=== PATIENT | female | born 1990 | race Caucasian/White ===

== ENCOUNTER 2018-03-26 13:54 | Inpatient (IN) | payer OTHER ==
[~2018-03-26] VITALS: Ht 167.6 cm; Wt 131.0 kg
--- NOTE | 2018-03-26 14:12 | NUR ---
Assumed care of patient. Patient states she locked herself outof her house and was trying to break in through a window and slipped. C/O left ankle pain. Deformity, edema, and bruising noted. Will continue to monitor.
[2018-03-26] MEDS ORDERED: PROPOFOL 10 MG/ML, 20ML ONE ×2 (15:18→15:49)
--- NOTE | 2018-03-26 15:19 | NUR ---
Patient ready for procedural sedation.
[2018-03-26] MEDS ORDERED: PREN1TAB62 PO (15:35)
--- NOTE | 2018-03-26 15:50 | NUR ---
TIME OUT PERFORMED AT 1542, PATIENT MEDICATED WITH PROPOFOL BY DR. FALLON. L ANKLE REDUCED, PATIENT TOLERATED WELL.
--- NOTE | 2018-03-26 15:57 | NUR ---
SPLINT COMPLETED, PATIENT TOLERATED WELL. PATIENT IS WAKING UP AND ALERT/ORIENTATED AT THIS TIME.
--- NOTE | 2018-03-26 16:59 | NUR ---
Resting in [facility]. No needs.
[2018-03-26] MEDS ORDERED: ONDANSETRON 2MG/ML, 2ML IVPush PRN (17:00)
[2018-03-26] MEDS ORDERED: ACETAMINOPHEN 325 MG TABLET PO PRN (17:00)
[2018-03-26] MEDS ORDERED: PROPOFOL 10 MG/ML, 20ML IVPush ONE (17:00)
[2018-03-26] MEDS ORDERED: LACTATED RINGERS 1,000 ML IV SCH (17:00)
[2018-03-26 17:10] LABS: ALANINE AMINOTRANSFERASE 43 U/L (12-78); ALBUMIN 3.6 g/dL (3.4-5.0); ANION GAP 5 mmol/L (5-15); CALCIUM 8.9 mg/dL (8.5-10.1); CHLORIDE 111 mmol/L (98-107); CREATININE 0.59 mg/dL (0.55-1.02)
[2018-03-26 17:13] LABS: ALKALINE PHOSPHATASE 96 U/L (45-117); BILIRUBIN,TOTAL 0.4 mg/dL (0.2-1.0); TOTAL PROTEIN 7.5 g/dL (6.4-8.2)
[2018-03-26 17:46] LABS: BASOPHILS # (AUTO) 0.03 x10^3/uL (0-0.1); BASOPHILS % (AUTO) 0 % (0-1); EOSINOPHILS % (AUTO) 0 % (1-7); LYMPHOCYTES # (AUTO) 1.59 x10^3/uL (1-3.4); LYMPHOCYTES % (AUTO) 11 % (22-44); MD NO; MEAN CORPUSCULAR HEMOGLOBIN 27.7 pg (27.0-34.8); MEAN CORPUSCULAR HGB CONC 34.2 g/dL (32.4-35.8); MEAN CORPUSCULAR VOLUME 81.2 fL (80-100); MEAN PLATELET VOLUME 8.6 fL (7.4-10.4); MONOCYTES % (AUTO) 4 % (2-9); NEUTROPHILS # (AUTO) 12.32 x10^3/uL (1.8-6.8); NEUTROPHILS % (AUTO) 85 % (42-75); PLATELET COUNT 344 x10^3/uL (130-400); RED BLOOD COUNT 4.81 x10^6/uL (3.82-5.3); RED CELL DISTRIBUTION WIDTH 14.2 % (9.6-15.2)
--- NOTE | 2018-03-26 18:01 | NUR ---
Report called to TONY Simpson.
[2018-03-26] MEDS: D5%-0.45% NACL 1,000 ML IV SCH (20:32)
[2018-03-26] MEDS: ACETAMINOPHEN 500 MG TABLET PO PRN (20:32)
[2018-03-27] MEDS: ACETAMINOPHEN 500 MG TABLET PO PRN ×3 (01:56→08:39)
[2018-03-27 04:15] VITALS: BP 148/92
[2018-03-27 08:00] VITALS: BP 142/96
[2018-03-27] MEDS: PRENATAL VIT/IRON/FA 1 EACH TABLET PO SCH (09:00)
[2018-03-27] MEDS: D5%-0.45% NACL 1,000 ML IV SCH ×2 (09:04→20:36)
[2018-03-27] MEDS ORDERED: ROPIvacaine/PF 0.5%, 20 ML ONE ×2 (15:03→16:59)
[2018-03-27] MEDS ORDERED: BUPIVACAINE/PF 0.25% ONE (15:03)
[2018-03-27] MEDS ORDERED: CEFAZOLIN 1,000 MG ONE (15:19)
[2018-03-27] MEDS ORDERED: FENTANYL PF 250 MCG/5ML ONE (15:19)
[2018-03-27] MEDS ORDERED: NEOSPORIN OINT, 15GM ONE (15:56)
[2018-03-27] MEDS ORDERED: ONDANSETRON 2MG/ML, 2ML IV PRN ×2 (16:00→19:00)
[2018-03-27] MEDS ORDERED: LABETALOL 5MG/ML, 20ML IV PRN (16:00)
[2018-03-27] MEDS ORDERED: OXYcodone 5 MG/5 ML ORAL.SOL UDC PO PRN (16:00)
[2018-03-27] MEDS ORDERED: HYDROmorphone 2 MG/ML, 1ML IVPush PRN (16:00)
[2018-03-27] MEDS ORDERED: ALBUTEROL SULFATE 2.5 MG/3 ML NPPB PRN (16:00)
[2018-03-27] MEDS ORDERED: MORPHINE SULFATE 4 MG/ML, 1ML IVPush PRN (16:00)
[2018-03-27] MEDS ORDERED: ONDANSETRON ODT 8 MG PO PRN (16:00)
[2018-03-27] MEDS ORDERED: EPHEDRINE 50 MG/ML, 1ML IVPush PRN (16:00)
[2018-03-27] MEDS ORDERED: ACETAMINOPHEN 325 MG TABLET PO PRN ×2 (16:00→19:00)
[2018-03-27] MEDS ORDERED: SUCCINYLCHOLINE 20 MG/ML, 10ML ONE (16:32)
[2018-03-27] MEDS ORDERED: PROPOFOL 10 MG/ML, 20ML ONE (16:32)
[2018-03-27] MEDS ORDERED: ROCURONIUM 10MG/ML,5ML ONE (16:32)
[2018-03-27] MEDS ORDERED: ROPIvacaine/PF 0.2%, 20 ML ONE (16:32)
[2018-03-27] MEDS ORDERED: FENTANYL PF 100 MCG/2ML ONE ×2 (16:39→18:02)
[2018-03-27] MEDS ORDERED: ONDANSETRON 2MG/ML, 2ML ONE (16:57)
[2018-03-27] MEDS: FENTANYL PF 100 MCG/2ML IV PRN ×2 (18:00→18:11)
[2018-03-27] MEDS ORDERED: OXYcodone 5 MG/5 ML ORAL.SOL UDC ONE (18:02)
[2018-03-27] MEDS ORDERED: ACETAMINOPHEN 650 MG/20.3 ML UDC ONE (18:02)
[2018-03-27] MEDS ORDERED: ALUMINUM/MAG/SIMETHICONE 30 ML UDC PO PRN (19:00)
[2018-03-27] MEDS ORDERED: BISACODYL 10 MG SUPP PR PRN (19:00)
[2018-03-27] MEDS ORDERED: SENNA/DOCUSATE TABLET PO PRN (19:00)
[2018-03-27] MEDS ORDERED: MAGNESIUM HYDROXIDE 8%, 30ML UDC PO PRN (19:00)
[2018-03-27 19:40] VITALS: BP 131/91
[2018-03-27] MEDS: CEFAZOLIN PMX 1GM/50ML 50 ML IVPB SCH (20:09)
[2018-03-27] MEDS: POTASSIUM CHLORIDE 10 MEQ in D5%-0.45% NACL 1,000 ML IV SCH (20:09)
[2018-03-27] MEDS: HYDROcodone/APAP 7.5-325MG/15ML UDC PO PRN (21:00)
[2018-03-27] MEDS: DOCUSATE 100 MG CAPSULE PO SCH (21:00)
[2018-03-27 21:56] VITALS: BP 154/92
[2018-03-28 04:00] VITALS: BP 134/81
[2018-03-28] MEDS: CEFAZOLIN PMX 1GM/50ML 50 ML IVPB SCH (04:21)
[2018-03-28] MEDS: HYDROcodone/APAP 7.5-325MG/15ML UDC PO PRN ×2 (04:32→09:21)
[2018-03-28 08:38] VITALS: BP 104/75
[2018-03-28] MEDS ORDERED: MULTIVITAMINS/MINERALS TABLET PO SCH (09:00)
[2018-03-28] MEDS: DOCUSATE 100 MG CAPSULE PO SCH (09:21)
[2018-03-28] MEDS: PRENATAL VIT/IRON/FA 1 EACH TABLET PO SCH (09:22)
[2018-03-28] MEDS: D5%-0.45% NACL 1,000 ML IV SCH (11:00)
[2018-03-28 13:00] VITALS: BP 144/79
[2018-03-28] MEDS ORDERED: ASPI-496 PO (13:57)
[2018-03-28] MEDS ORDERED: OXYC-302 PO (13:58)
[2018-03-28] MEDS: POTASSIUM CHLORIDE 10 MEQ in D5%-0.45% NACL 1,000 ML IV SCH (15:06)
== END 2018-03-28 16:36 | disposition home or self-care (01) | DRG 819 ==
LOC: EDBD 13:54 → ED 14:24 → EDIP 16:42 → 3WST 18:30 → EDIP 18:30 → 4NOR 03-28 00:56 → DCLOUNGE 03-28 16:30
PROVIDERS: ADMIT Hospitalist; ATTEND Hospitalist
PROC: 0QSK04Z Reposition Left Fibula with Internal Fixation Device, Open Approach (ICD-10-PCS; principal; 2018-03-26)
PROC: 0QSH04Z Reposition Left Tibia with Internal Fixation Device, Open Approach (ICD-10-PCS; 2018-03-26)
PROC: 0QSH0ZZ Reposition Left Tibia, Open Approach (ICD-10-PCS; 2018-03-26)
PROC: 3E0T3BZ Introduction of Anesthetic Agent into Peripheral Nerves and Plexi, Percutaneous Approach (ICD-10-PCS; 2018-03-26)
DX: O9A.211 Injury, poisoning and certain other consequences of external causes complicating pregnancy, first trimester (principal); S82.852A Displaced trimalleolar fracture of left lower leg, initial encounter for closed fracture; Z3A.01 Less than 8 weeks gestation of pregnancy; W00.0XXA Fall on same level due to ice and snow, initial encounter; Y93.89 Activity, other specified; Y92.89 Other specified places as the place of occurrence of the external cause; Y99.8 Other external cause status
CPT/HCPCS: 27752; 36415; 76001; 80053; 83735; 84100; 85025; 99152; C1713; G0378; J0690; J2405; J2704; J2795; J3010; J3480; J3490; J0330

== ENCOUNTER 2018-05-10 04:48 | Emergency (ER) | payer SELFPAY ==
[~2018-05-10] VITALS: Ht 167.6 cm; Wt 127.3 kg
[~2018-05-10 04:48] MED LIST: ASPI-496 PO; OXYC-302 PO; PREN1TAB62 PO
--- NOTE | 2018-05-10 06:29 | NUR ---
to room 1
--- NOTE | 2018-05-10 06:33 | NUR ---
PT IN [place]
--- NOTE | 2018-05-10 06:42 | NUR ---
PT TO RESTROOM FOR UA AT THIS TIME.
--- NOTE | 2018-05-10 06:50 | NUR ---
UA OBTAINED AND TUBED TO LAB. POC DISCUSSED. PT AND FRIENDS DENY FURTHER NEEDS AT THIS TIME.
--- NOTE | 2018-05-10 06:55 | NUR ---
REPORT FROM MATTEO JIMENEZ.
[2018-05-10 06:59] LABS: CULTURE INDICATED? YES; MICROSCOPIC INDICATED
[2018-05-10 07:37] LABS: BASOPHILS # (AUTO) 0.04 x10^3/uL (0-0.1); BASOPHILS % (AUTO) 0 % (0-1); EOSINOPHILS # (AUTO) 0.06 x10^3/uL (0-0.4); EOSINOPHILS % (AUTO) 1 % (1-7); LYMPHOCYTES # (AUTO) 1.87 x10^3/uL (1-3.4); LYMPHOCYTES % (AUTO) 17 % (22-44); MD NO; MEAN CORPUSCULAR HEMOGLOBIN 26.9 pg (27.0-34.8); MEAN CORPUSCULAR HGB CONC 33.5 g/dL (32.4-35.8); MEAN CORPUSCULAR VOLUME 80.3 fL (80-100); MEAN PLATELET VOLUME 9.1 fL (7.4-10.4); MONOCYTES % (AUTO) 5 % (2-9); NEUTROPHILS # (AUTO) 8.65 x10^3/uL (1.8-6.8); NEUTROPHILS % (AUTO) 77 % (42-75); PLATELET COUNT 307 x10^3/uL (130-400); RED CELL DISTRIBUTION WIDTH 14.1 % (9.6-15.2)
[2018-05-10 07:38] LABS: ALBUMIN 3.2 g/dL (3.4-5.0); ANION GAP 9 mmol/L (5-15); CALCIUM 9.1 mg/dL (8.5-10.1); CHLORIDE 106 mmol/L (98-107); CREATININE 0.61 mg/dL (0.55-1.02)
[2018-05-10 07:57] VITALS: BP 123/77
== END 2018-05-10 08:25 | disposition home or self-care (01) ==
LOC: ED 08:22
DX: O20.0 Threatened abortion (principal); O23.11 Infections of bladder in pregnancy, first trimester; Z3A.13 13 weeks gestation of pregnancy
CPT/HCPCS: 36415; 76801; 80048; 81001; 82040; 84702; 85025; 86901; 87086; 99284